=== PATIENT | female | born 1945 | race Caucasian/White ===

== ENCOUNTER 2017-09-03 17:33 | Observation (INO) | payer MEDICARE, OTHER ==
[~2017-09-03] VITALS: Ht 167.6 cm; Wt 60.0 kg
[~2017-09-03 17:33] MED LIST: ALBU18HF2 INH; ASPI-1265 PO; CHLO473M2 PO; CLOP75TA35 PO; COL100C PO; COR3.125T PO; FURO-150 PO; LISI-222 PO; NIA500ERT PO; POTA20TA19 PO; SIMV20TA5 PO
[2017-09-03 18:06] LABS: BASOPHILS % (AUTO) 0.3 % (0-1); EOSINOPHILS # (AUTO) 0.1 X10'3 (0-0.9); EOSINOPHILS % (AUTO) 0.6 % (0-6); HEMATOCRIT 36.7 % (35.0-45.0); HEMOGLOBIN 12.2 g/dl (12.0-16.0); LYMPHOCYTES # (AUTO) 2.2 X10'3 (1.1-4.8); LYMPHOCYTES % (AUTO) 17.1 % (21-51); MEAN CORPUSCULAR HEMOGLOBIN 26.3 PG (27.0-31.0); MEAN CORPUSCULAR HGB CONC 33.3 % (33.0-36.5); MEAN CORPUSCULAR VOLUME 78.9 FL (78-98); MEAN PLATELET VOLUME 8.8 FL (7.4-10.4); MONOCYTES # (AUTO) 1.3 X10'3 (0-0.9); MONOCYTES % (AUTO) 9.9 % (2-12); NEUTROPHILS # (AUTO) 9.2 X10'3 (1.8-7.7); NEUTROPHILS % (AUTO) 72.1 % (42-75); PLATELET COUNT 215 X10'3 (140-440); RED BLOOD COUNT 4.65 X10'6 (4.20-5.60); RED CELL DISTRIBUTION WIDTH 15.3 % (11.5-14.5); WHITE BLOOD COUNT 12.8 X10'3 (4.5-11.0)
[2017-09-03 18:17] LABS: PARTIAL THROMBOPLASTIN TIME 26 SECONDS (22-32); PROTHROMBIN TIME 10.8 SECONDS (9.0-12.0)
[2017-09-03 18:21] LABS: ALANINE AMINOTRANSFERASE 20 U/L (12-78); ALBUMIN/GLOBULIN RATIO 0.6 (1.1-1.5); ALKALINE PHOSPHATASE 96 IU/L (46-116); ANION GAP 7 (8-16); ASPARTATE AMINO TRANSFERASE 34 U/L (10-37); BILIRUBIN,TOTAL 0.7 MG/DL (0.1-1.0); BLOOD UREA NITROGEN 20 MG/DL (7-18); BUN/CREATININE RATIO 18.3 (6.6-38.0); CALCIUM 8.9 MG/DL (8.5-10.1); CHLORIDE 102 MMOL/L (99-107); CREATININE 1.09 MG/DL (0.40-0.90); GLUCOSE 126 MG/DL (70-104); POTASSIUM 3.7 MMOL/L (3.5-5.1); SODIUM 139 MMOL/L (135-145); TOTAL CARBON DIOXIDE 29.7 MMOL/L (24-32); TOTAL PROTEIN 7.8 G/DL (6.4-8.2); eGFR 49 ML/MIN
[2017-09-03 18:28] LABS: MAGNESIUM 1.8 MG/DL (1.5-2.4)
[2017-09-03] MEDS ORDERED: NITR0.4T51 SL (19:56)
[2017-09-03] MEDS ORDERED: HYDR-569 PO (19:56)
[2017-09-03] MEDS ORDERED: LEVO750T21 PO (19:56)
[2017-09-03] MEDS ORDERED: furosemide 40mg/4ml inj IV ONE (20:00)
[2017-09-03] MEDS ORDERED: mag hydrox/Alum hydrox/simeth 30ml oral suspension PO PRN (22:10)
[2017-09-03] MEDS ORDERED: acetaminophen 325mg tablet PO PRN (22:10)
[2017-09-03] MEDS ORDERED: bisacodyl 10mg suppository rectal RC PRN (22:10)
[2017-09-03 22:50] VITALS: BP 141/63
[2017-09-03] MEDS: levoFLOXACIN-Levaquin 500mg/D5 100 ML IV SCH (23:17)
[2017-09-04 02:00] VITALS: BP 144/71
[2017-09-04] MEDS: ipratropium/albuterol 3ml nebule NEB SCH ×4 (03:53→20:17)
[2017-09-04 06:50] VITALS: BP 134/63
[2017-09-04 07:20] LABS: BASOPHILS % (AUTO) 0.2 % (0-1); EOSINOPHILS % (AUTO) 0.5 % (0-6); HEMOGLOBIN 11.8 g/dl (12.0-16.0); LYMPHOCYTES % (AUTO) 19.3 % (21-51); MEAN CORPUSCULAR HEMOGLOBIN 26.1 PG (27.0-31.0); MEAN CORPUSCULAR HGB CONC 33.6 % (33.0-36.5); MEAN CORPUSCULAR VOLUME 77.7 FL (78-98); MEAN PLATELET VOLUME 9.4 FL (7.4-10.4); MONOCYTES # (AUTO) 1.2 X10'3 (0-0.9); MONOCYTES % (AUTO) 11.5 % (2-12); NEUTROPHILS # (AUTO) 7.2 X10'3 (1.8-7.7); NEUTROPHILS % (AUTO) 68.5 % (42-75); PLATELET COUNT 191 X10'3 (140-440); RED CELL DISTRIBUTION WIDTH 15.7 % (11.5-14.5); WHITE BLOOD COUNT 10.4 X10'3 (4.5-11.0)
[2017-09-04] MEDS ORDERED: furosemide 20MG tablet PO SCH (08:00)
[2017-09-04 08:11] LABS: ALANINE AMINOTRANSFERASE 28 U/L (12-78); ALBUMIN 2.9 G/DL (3.4-5.0); ALBUMIN/GLOBULIN RATIO 0.6 (1.1-1.5); ALKALINE PHOSPHATASE 91 IU/L (46-116); ANION GAP 9 (8-16); ASPARTATE AMINO TRANSFERASE 29 U/L (10-37); BILIRUBIN,TOTAL 0.8 MG/DL (0.1-1.0); BLOOD UREA NITROGEN 16 MG/DL (7-18); BUN/CREATININE RATIO 18.2 (6.6-38.0); CALCIUM 8.9 MG/DL (8.5-10.1); CHLORIDE 103 MMOL/L (99-107); CREATININE 0.88 MG/DL (0.40-0.90); GLUCOSE 117 MG/DL (70-104); SODIUM 141 MMOL/L (135-145); TOTAL CARBON DIOXIDE 28.9 MMOL/L (24-32); TOTAL PROTEIN 7.6 G/DL (6.4-8.2); eGFR 63 ML/MIN
[2017-09-04 08:13] LABS: POTASSIUM 2.8 MMOL/L (3.5-5.1)
[2017-09-04] MEDS ORDERED: magnesium 4gm in 100ml NS 100 ML IV PRN (09:45)
[2017-09-04] MEDS ORDERED: potassium Cl 40MEQ/NS 500ml 500 ML IV PRN ×2 (09:45)
[2017-09-04] MEDS ORDERED: magnesium/D5W IVPB 100 ML IV PRN (09:45)
[2017-09-04] MEDS ORDERED: magnesium Cl slow-release 64mg tablet PO PRN (09:45)
[2017-09-04] MEDS ORDERED: potassium Cl 20 mEq SR tablet PO PRN ×2 (09:45)
[2017-09-04 10:00] VITALS: BP 133/53
[2017-09-04] MEDS: docusate sod 100mg capsule PO SCH ×2 (10:06→19:03)
[2017-09-04] MEDS: carvedilol 6.25mg tablet PO SCH ×2 (10:06→19:03)
[2017-09-04] MEDS: aspirin 81mg tab.chew PO SCH (10:06)
[2017-09-04] MEDS: lisinopril 5mg tablet PO SCH (10:06)
[2017-09-04] MEDS: furosemide 20 MG/2 ML vial IV SCH ×2 (10:07→19:02)
[2017-09-04] MEDS: levoFLOXACIN-Levaquin 500mg/D5 100 ML IV SCH (10:08)
[2017-09-04] MEDS: traMADol 50MG tablet PO PRN ×3 (10:13→19:58)
[2017-09-04 10:15] VITALS: BP 121/63
[2017-09-04] MEDS ORDERED: potassium Cl oral solution 20 MEQ/15 ML PO PRN (14:55)
[2017-09-04] MEDS: potassium Cl oral solution 20 MEQ/15 ML PO PRN ×2 (15:59→19:58)
[2017-09-04 18:00] VITALS: BP 144/66
[2017-09-04] MEDS ORDERED: magnesium hydroxide 30ml (MOM) UD suspension PO ONE (18:50)
[2017-09-04] MEDS ORDERED: HYDROcodone/acetaminophen 5mg/325mg tablet PO PRN (18:50)
[2017-09-04] MEDS ORDERED: magnesium hydroxide 30ml (MOM) UD suspension PO PRN (18:55)
[2017-09-04 21:39] VITALS: BP 131/50
[2017-09-05 03:03] VITALS: BP 118/58
[2017-09-05] MEDS: ipratropium/albuterol 3ml nebule NEB SCH ×4 (04:20→20:52)
[2017-09-05 06:10] LABS: BASOPHILS % (AUTO) 0.1 % (0-1); EOSINOPHILS # (AUTO) 0.1 X10'3 (0-0.9); EOSINOPHILS % (AUTO) 0.7 % (0-6); HEMATOCRIT 33.8 % (35.0-45.0); HEMOGLOBIN 11.2 g/dl (12.0-16.0); LYMPHOCYTES # (AUTO) 1.9 X10'3 (1.1-4.8); LYMPHOCYTES % (AUTO) 18.4 % (21-51); MEAN CORPUSCULAR HEMOGLOBIN 26.1 PG (27.0-31.0); MEAN CORPUSCULAR HGB CONC 33.1 % (33.0-36.5); MEAN CORPUSCULAR VOLUME 78.9 FL (78-98); MEAN PLATELET VOLUME 9.4 FL (7.4-10.4); MONOCYTES # (AUTO) 1.6 X10'3 (0-0.9); NEUTROPHILS # (AUTO) 6.6 X10'3 (1.8-7.7); NEUTROPHILS % (AUTO) 64.8 % (42-75); PLATELET COUNT 154 X10'3 (140-440); RED BLOOD COUNT 4.28 X10'6 (4.20-5.60); RED CELL DISTRIBUTION WIDTH 15.5 % (11.5-14.5); WHITE BLOOD COUNT 10.3 X10'3 (4.5-11.0)
[2017-09-05 06:44] LABS: ALANINE AMINOTRANSFERASE 18 U/L (12-78); ALBUMIN 2.5 G/DL (3.4-5.0); ALBUMIN/GLOBULIN RATIO 0.6 (1.1-1.5); ALKALINE PHOSPHATASE 77 IU/L (46-116); ANION GAP 8 (8-16); ASPARTATE AMINO TRANSFERASE 28 U/L (10-37); BILIRUBIN,TOTAL 0.8 MG/DL (0.1-1.0); BLOOD UREA NITROGEN 25 MG/DL (7-18); BUN/CREATININE RATIO 25.5 (6.6-38.0); CALCIUM 8.8 MG/DL (8.5-10.1); CHLORIDE 104 MMOL/L (99-107); CREATININE 0.98 MG/DL (0.40-0.90); GLUCOSE 98 MG/DL (70-104); MAGNESIUM 1.9 MG/DL (1.5-2.4); POTASSIUM 4.2 MMOL/L (3.5-5.1); SODIUM 140 MMOL/L (135-145); TOTAL CARBON DIOXIDE 28.5 MMOL/L (24-32); TOTAL PROTEIN 6.9 G/DL (6.4-8.2); eGFR 56 ML/MIN
[2017-09-05] MEDS: carvedilol 6.25mg tablet PO SCH ×2 (07:10→20:07)
[2017-09-05] MEDS: traMADol 50MG tablet PO PRN (07:10)
[2017-09-05] MEDS: aspirin 81mg tab.chew PO SCH (07:10)
[2017-09-05] MEDS: lisinopril 5mg tablet PO SCH (07:10)
[2017-09-05] MEDS: docusate sod 100mg capsule PO SCH ×2 (07:10→20:07)
[2017-09-05] MEDS: levoFLOXACIN-Levaquin 500mg/D5 100 ML IV SCH (07:11)
[2017-09-05] MEDS: furosemide 20 MG/2 ML vial IV SCH ×2 (07:11→20:07)
[2017-09-05 08:00] VITALS: BP 118/60
[2017-09-05] MEDS ORDERED: ipratropium/albuterol 3ml nebule NEB PRN (14:05)
[2017-09-05] MEDS: guaiFENesin ER 600mg tablet PO SCH ×2 (14:11→20:07)
[2017-09-05 16:39] VITALS: BP 135/61
[2017-09-05] MEDS: lactobacillus rhamnosus 10,000 MMU CELLS/CAPSULE PO SCH (20:07)
[2017-09-05 22:00] VITALS: BP 116/55
[2017-09-06] MEDS: ipratropium/albuterol 3ml nebule NEB SCH ×2 (02:57→08:17)
[2017-09-06 04:30] LABS: BASOPHILS % (AUTO) 0.2 % (0-1); EOSINOPHILS # (AUTO) 0.2 X10'3 (0-0.9); EOSINOPHILS % (AUTO) 1.7 % (0-6); HEMATOCRIT 31.5 % (35.0-45.0); HEMOGLOBIN 10.3 g/dl (12.0-16.0); LYMPHOCYTES # (AUTO) 1.8 X10'3 (1.1-4.8); LYMPHOCYTES % (AUTO) 17.8 % (21-51); MEAN CORPUSCULAR HEMOGLOBIN 25.9 PG (27.0-31.0); MEAN CORPUSCULAR HGB CONC 32.7 % (33.0-36.5); MEAN CORPUSCULAR VOLUME 79.2 FL (78-98); MEAN PLATELET VOLUME 9.7 FL (7.4-10.4); MONOCYTES # (AUTO) 1.2 X10'3 (0-0.9); MONOCYTES % (AUTO) 11.3 % (2-12); NEUTROPHILS # (AUTO) 7.1 X10'3 (1.8-7.7); PLATELET COUNT 140 X10'3 (140-440); RED BLOOD COUNT 3.97 X10'6 (4.20-5.60); RED CELL DISTRIBUTION WIDTH 15.3 % (11.5-14.5); WHITE BLOOD COUNT 10.4 X10'3 (4.5-11.0)
[2017-09-06 04:52] LABS: ALANINE AMINOTRANSFERASE 18 U/L (12-78); ALBUMIN 2.5 G/DL (3.4-5.0); ALBUMIN/GLOBULIN RATIO 0.6 (1.1-1.5); ALKALINE PHOSPHATASE 74 IU/L (46-116); ANION GAP 9 (8-16); ASPARTATE AMINO TRANSFERASE 29 U/L (10-37); BILIRUBIN,TOTAL 0.7 MG/DL (0.1-1.0); BLOOD UREA NITROGEN 28 MG/DL (7-18); BUN/CREATININE RATIO 30.4 (6.6-38.0); CALCIUM 8.7 MG/DL (8.5-10.1); CHLORIDE 99 MMOL/L (99-107); CREATININE 0.92 MG/DL (0.40-0.90); GLUCOSE 109 MG/DL (70-104); MAGNESIUM 2.2 MG/DL (1.5-2.4); POTASSIUM 4.1 MMOL/L (3.5-5.1); SODIUM 136 MMOL/L (135-145); TOTAL CARBON DIOXIDE 28.2 MMOL/L (24-32); TOTAL PROTEIN 6.9 G/DL (6.4-8.2); eGFR 60 ML/MIN
[2017-09-06 06:00] VITALS: BP 114/56
[2017-09-06] MEDS: aspirin 81mg tab.chew PO SCH (07:28)
[2017-09-06] MEDS: furosemide 20 MG/2 ML vial IV SCH (07:29)
[2017-09-06] MEDS: lisinopril 5mg tablet PO SCH (07:29)
[2017-09-06] MEDS: carvedilol 6.25mg tablet PO SCH (07:29)
[2017-09-06] MEDS: levoFLOXACIN-Levaquin 500mg/D5 100 ML IV SCH (07:29)
[2017-09-06] MEDS: docusate sod 100mg capsule PO SCH (07:29)
[2017-09-06] MEDS: guaiFENesin ER 600mg tablet PO SCH (07:29)
[2017-09-06] MEDS: lactobacillus rhamnosus 10,000 MMU CELLS/CAPSULE PO SCH (07:29)
[2017-09-06] MEDS ORDERED: IPRA3AMP9 NEB (09:57)
== END 2017-09-06 11:20 | disposition home or self-care (01) ==
LOC: ER 17:34 → ED HOLD 22:09 → ORTHO 4S 23:02
PROVIDERS: ADMIT Emergency Medicine; ATTEND Internal Medicine
DX: R07.89 Other chest pain (principal); D64.9 Anemia, unspecified; E44.0 Moderate protein-calorie malnutrition; R05 Cough; I11.0 Hypertensive heart disease with heart failure; I50.23 Acute on chronic systolic (congestive) heart failure; E78.00 Pure hypercholesterolemia, unspecified; E78.5 Hyperlipidemia, unspecified; E87.6 Hypokalemia; N17.9 Acute kidney failure, unspecified; I25.10 Atherosclerotic heart disease of native coronary artery without angina pectoris; I25.2 Old myocardial infarction; I48.91 Unspecified atrial fibrillation; J96.01 Acute respiratory failure with hypoxia; Z86.73 Personal history of transient ischemic attack (TIA), and cerebral infarction without residual deficits; Z95.5 Presence of coronary angioplasty implant and graft; Z95.0 Presence of cardiac pacemaker; Z79.82 Long term (current) use of aspirin
CPT/HCPCS: 36415; 71045; 80053; 83735; 83880; 84484; 85025; 85610; 85730; 87070; 93005; 93306; 94640; 94760; 96365; 96366; 96375; 96376; 97110; 97162; 99285; G0378; J1940; J1956

== ENCOUNTER 2018-01-06 09:28 | Inpatient (IN) | payer MEDICARE, OTHER ==
[~2018-01-06] VITALS: Ht 167.6 cm; Wt 59.1 kg
[~2018-01-06 09:28] MED LIST changes: -ALBU18HF2 INH; -CHLO473M2 PO; -CLOP75TA35 PO; +HYDR-4383 PO; +IPRA3AMP9 NEB; +LEVO750T21 PO; -NIA500ERT PO; +NITR0.4T51 SL; -SIMV20TA5 PO
[2018-01-06] MEDS ORDERED: aspirin 81mg tab.chew PO ONE (09:40)
[2018-01-06] MEDS ORDERED: diltiazem 5mg/ml 5ml inj. IV ONE ×2 (09:40→10:55)
[2018-01-06 10:06] LABS: BASOPHILS % (AUTO) 0.3 % (0-1); EOSINOPHILS # (AUTO) 0.1 X10'3 (0-0.9); EOSINOPHILS % (AUTO) 1.6 % (0-6); HEMATOCRIT 33.7 % (35.0-45.0); HEMOGLOBIN 10.9 g/dl (12.0-16.0); LYMPHOCYTES # (AUTO) 1.4 X10'3 (1.1-4.8); LYMPHOCYTES % (AUTO) 20.6 % (21-51); MEAN CORPUSCULAR HEMOGLOBIN 24.4 PG (27.0-31.0); MEAN CORPUSCULAR HGB CONC 32.2 % (33.0-36.5); MEAN CORPUSCULAR VOLUME 75.9 FL (78-98); MEAN PLATELET VOLUME 8.7 FL (7.4-10.4); MONOCYTES # (AUTO) 0.6 X10'3 (0-0.9); MONOCYTES % (AUTO) 8.4 % (2-12); NEUTROPHILS # (AUTO) 4.8 X10'3 (1.8-7.7); NEUTROPHILS % (AUTO) 69.1 % (42-75); PLATELET COUNT 314 X10'3 (140-440); RED BLOOD COUNT 4.44 X10'6 (4.20-5.60); RED CELL DISTRIBUTION WIDTH 16.8 % (11.5-14.5); WHITE BLOOD COUNT 6.9 X10'3 (4.5-11.0)
[2018-01-06 10:17] LABS: INR 1.1 INR; PARTIAL THROMBOPLASTIN TIME 24 SECONDS (22-32); PROTHROMBIN TIME 11.6 SECONDS (9.0-12.0)
[2018-01-06 10:18] LABS: ALANINE AMINOTRANSFERASE 72 U/L (12-78); ALBUMIN 2.7 G/DL (3.4-5.0); ALBUMIN/GLOBULIN RATIO 0.7 (1.1-1.5); ALKALINE PHOSPHATASE 109 IU/L (46-116); ANION GAP 8 (8-16); ASPARTATE AMINO TRANSFERASE 47 U/L (10-37); BILIRUBIN,TOTAL 0.6 MG/DL (0.1-1.0); BLOOD UREA NITROGEN 32 MG/DL (7-18); BUN/CREATININE RATIO 29.4 (6.6-38.0); CALCIUM 8.7 MG/DL (8.5-10.1); CHLORIDE 103 MMOL/L (99-107); CREATININE 1.09 MG/DL (0.40-0.90); GLUCOSE 164 MG/DL (70-104); POTASSIUM 3.9 MMOL/L (3.5-5.1); SODIUM 140 MMOL/L (135-145); TOTAL CARBON DIOXIDE 29.5 MMOL/L (24-32); TOTAL PROTEIN 6.8 G/DL (6.4-8.2); eGFR 49 ML/MIN
[2018-01-06 10:25] LABS: MAGNESIUM 1.9 MG/DL (1.5-2.4)
[2018-01-06] MEDS ORDERED: ATOR40TA PO (11:50)
[2018-01-06] MEDS ORDERED: magnesium 1gm/100ml D5W IVPB 100 ML IV PRN (12:15)
[2018-01-06] MEDS ORDERED: HYDROcodone/acetaminophen 5mg/325mg tablet PO PRN (12:15)
[2018-01-06] MEDS ORDERED: mag hydrox/Alum hydrox/simeth 30ml oral suspension PO PRN (12:15)
[2018-01-06] MEDS ORDERED: potassium Cl 20 mEq SR tablet PO PRN ×2 (12:15)
[2018-01-06] MEDS ORDERED: acetaminophen 325mg tablet PO PRN ×2 (12:15)
[2018-01-06] MEDS ORDERED: magnesium Cl slow-release 64mg tablet PO PRN (12:15)
[2018-01-06] MEDS ORDERED: magnesium hydroxide 30ml (MOM) UD suspension PO PRN (12:15)
[2018-01-06] MEDS ORDERED: magnesium 4gm in 100ml NS 100 ML IV PRN (12:15)
[2018-01-06] MEDS ORDERED: potassium Cl 40MEQ/NS 500ml 500 ML IV PRN ×2 (12:15)
[2018-01-06] MEDS ORDERED: nitroGLYCERIN 0.4mg SUBLingual tab SL PRN (12:15)
[2018-01-06] MEDS ORDERED: ondansetron/PF 4mg/2ml inj IV PRN (12:15)
[2018-01-06] MEDS: diltiazem-NS 100mg/100ml 100 ML IV SCH (12:45)
[2018-01-06 13:50] VITALS: BP 125/80
[2018-01-06] MEDS ORDERED: metoprolol tartrate 1mg/ml inj IV ONE (14:35)
[2018-01-06 15:00] VITALS: BP 116/90
[2018-01-06 17:00] VITALS: BP 111/61
[2018-01-06 19:00] VITALS: BP 116/73
[2018-01-06] MEDS ORDERED: carVEDilol 3.125mg tablet PO SCH (20:00)
[2018-01-06] MEDS: apixaban 5mg tablet PO SCH (20:47)
[2018-01-06] MEDS: furosemide 20MG tablet PO SCH (20:49)
[2018-01-06] MEDS: atorvastatin 20mg tablet PO SCH (20:49)
[2018-01-06] MEDS: docusate sod 100mg capsule PO SCH (20:50)
[2018-01-06 21:00] VITALS: BP 110/59
[2018-01-06 23:00] VITALS: BP 107/57
[2018-01-07] VITALS (14 sets, daily range): BP systolic 99–136; BP diastolic 56–103
[2018-01-07] MEDS: diltiazem-NS 100mg/100ml 100 ML IV SCH (05:25)
[2018-01-07] MEDS ORDERED: furosemide 20 MG/2 ML vial IV ONE (06:40)
[2018-01-07 07:29] LABS: BASOPHILS % (AUTO) 0.7 % (0-1); EOSINOPHILS # (AUTO) 0.2 X10'3 (0-0.9); EOSINOPHILS % (AUTO) 3.3 % (0-6); HEMATOCRIT 34.1 % (35.0-45.0); HEMOGLOBIN 11.1 g/dl (12.0-16.0); LYMPHOCYTES # (AUTO) 1.6 X10'3 (1.1-4.8); LYMPHOCYTES % (AUTO) 24.6 % (21-51); MEAN CORPUSCULAR HEMOGLOBIN 24.5 PG (27.0-31.0); MEAN CORPUSCULAR HGB CONC 32.5 % (33.0-36.5); MEAN CORPUSCULAR VOLUME 75.3 FL (78-98); MEAN PLATELET VOLUME 8.8 FL (7.4-10.4); MONOCYTES # (AUTO) 0.7 X10'3 (0-0.9); MONOCYTES % (AUTO) 10.5 % (2-12); NEUTROPHILS # (AUTO) 3.9 X10'3 (1.8-7.7); NEUTROPHILS % (AUTO) 60.9 % (42-75); PLATELET COUNT 287 X10'3 (140-440); RED BLOOD COUNT 4.53 X10'6 (4.20-5.60); RED CELL DISTRIBUTION WIDTH 17.5 % (11.5-14.5); WHITE BLOOD COUNT 6.5 X10'3 (4.5-11.0)
[2018-01-07 07:41] LABS: ALANINE AMINOTRANSFERASE 74 U/L (12-78); ALBUMIN 2.7 G/DL (3.4-5.0); ALBUMIN/GLOBULIN RATIO 0.7 (1.1-1.5); ALKALINE PHOSPHATASE 104 IU/L (46-116); ANION GAP 6 (8-16); ASPARTATE AMINO TRANSFERASE 46 U/L (10-37); BILIRUBIN,TOTAL 0.8 MG/DL (0.1-1.0); BLOOD UREA NITROGEN 23 MG/DL (7-18); BUN/CREATININE RATIO 27.7 (6.6-38.0); CALCIUM 8.7 MG/DL (8.5-10.1); CHLORIDE 106 MMOL/L (99-107); CREATININE 0.83 MG/DL (0.40-0.90); GLUCOSE 98 MG/DL (70-104); MAGNESIUM 1.8 MG/DL (1.5-2.4); POTASSIUM 3.4 MMOL/L (3.5-5.1); SODIUM 143 MMOL/L (135-145); TOTAL CARBON DIOXIDE 31.2 MMOL/L (24-32); TOTAL PROTEIN 6.8 G/DL (6.4-8.2); eGFR 67 ML/MIN
[2018-01-07] MEDS: apixaban 5mg tablet PO SCH ×2 (07:58→20:06)
[2018-01-07] MEDS: potassium Cl 20 mEq SR tablet PO SCH (07:59)
[2018-01-07] MEDS ORDERED: carVEDilol 12.5mg tablet PO SCH (08:00)
[2018-01-07] MEDS: furosemide 20MG tablet PO SCH (08:00)
[2018-01-07] MEDS ORDERED: aspirin 81mg tab.chew PO SCH (08:00)
[2018-01-07] MEDS: docusate sod 100mg capsule PO SCH ×2 (08:00→20:05)
[2018-01-07] MEDS ORDERED: lisinopril 5mg tablet PO SCH (08:00)
[2018-01-07] MEDS: K and/or MAG REPLACEMENT MC SCH (08:03)
[2018-01-07] MEDS: carVEDilol 3.125mg tablet PO SCH ×2 (10:59→20:06)
[2018-01-07] MEDS: atorvastatin 20mg tablet PO SCH (20:05)
[2018-01-07] MEDS: furosemide 20 MG/2 ML vial IV SCH (20:06)
[2018-01-07] MEDS ORDERED: diltiazem-NS 100mg/100ml 100 ML IV SCH ×2 (21:25→21:27)
[2018-01-08] VITALS (9 sets, daily range): BP systolic 90–128; BP diastolic 54–99
[2018-01-08 03:57] LABS: MAGNESIUM 1.7 MG/DL (1.5-2.4); POTASSIUM 3.7 MMOL/L (3.5-5.1)
[2018-01-08 04:27] LABS: ALANINE AMINOTRANSFERASE 60 U/L (12-78); ALBUMIN 2.4 G/DL (3.4-5.0); ALBUMIN/GLOBULIN RATIO 0.6 (1.1-1.5); ALKALINE PHOSPHATASE 97 IU/L (46-116); ANION GAP 7 (8-16); ASPARTATE AMINO TRANSFERASE 32 U/L (10-37); BILIRUBIN,TOTAL 0.7 MG/DL (0.1-1.0); BLOOD UREA NITROGEN 22 MG/DL (7-18); BUN/CREATININE RATIO 27.2 (6.6-38.0); CALCIUM 8.4 MG/DL (8.5-10.1); CHLORIDE 108 MMOL/L (99-107); CREATININE 0.81 MG/DL (0.40-0.90); GLUCOSE 103 MG/DL (70-104); PHOSPHORUS 3.1 MG/DL (2.3-4.5); SODIUM 144 MMOL/L (135-145); TOTAL CARBON DIOXIDE 29.1 MMOL/L (24-32); TOTAL PROTEIN 6.4 G/DL (6.4-8.2); eGFR 69 ML/MIN
[2018-01-08 04:56] LABS: BASOPHILS % (AUTO) 0.2 % (0-1); EOSINOPHILS # (AUTO) 0.1 X10'3 (0-0.9); EOSINOPHILS % (AUTO) 1.5 % (0-6); HEMOGLOBIN 10.3 g/dl (12.0-16.0); LYMPHOCYTES # (AUTO) 1.2 X10'3 (1.1-4.8); LYMPHOCYTES % (AUTO) 17.5 % (21-51); MEAN CORPUSCULAR HEMOGLOBIN 24.4 PG (27.0-31.0); MEAN CORPUSCULAR HGB CONC 32.1 % (33.0-36.5); MEAN PLATELET VOLUME 9.6 FL (7.4-10.4); MONOCYTES # (AUTO) 0.9 X10'3 (0-0.9); MONOCYTES % (AUTO) 12.1 % (2-12); NEUTROPHILS # (AUTO) 4.8 X10'3 (1.8-7.7); NEUTROPHILS % (AUTO) 68.7 % (42-75); PLATELET COUNT 271 X10'3 (140-440); RED BLOOD COUNT 4.21 X10'6 (4.20-5.60); RED CELL DISTRIBUTION WIDTH 17.1 % (11.5-14.5); WHITE BLOOD COUNT 7.1 X10'3 (4.5-11.0)
[2018-01-08] MEDS: K and/or MAG REPLACEMENT MC SCH (08:00)
[2018-01-08] MEDS: lisinopril 2.5mg tablet PO SCH (08:05)
[2018-01-08] MEDS: docusate sod 100mg capsule PO SCH ×2 (08:06→20:54)
[2018-01-08] MEDS: potassium Cl 20 mEq SR tablet PO SCH (08:06)
[2018-01-08] MEDS: apixaban 5mg tablet PO SCH ×2 (08:06→20:54)
[2018-01-08] MEDS: furosemide 20 MG/2 ML vial IV SCH ×2 (08:08→20:54)
[2018-01-08] MEDS ORDERED: digoxin 250mcg/ml 2ml ampule IV ONE ×3 (09:05→18:00)
[2018-01-08] MEDS: carVEDilol 3.125mg tablet PO SCH ×2 (10:05→20:53)
[2018-01-08] MEDS: atorvastatin 20mg tablet PO SCH (20:53)
[2018-01-09 03:00] VITALS: BP 131/73
[2018-01-09 06:00] VITALS: BP 126/63
[2018-01-09] MEDS: digoxin 250mcg (0.25mg) tablet PO SCH ×2 (07:03→08:53)
[2018-01-09 07:24] LABS: BASOPHILS % (AUTO) 0.5 % (0-1); EOSINOPHILS # (AUTO) 0.3 X10'3 (0-0.9); EOSINOPHILS % (AUTO) 5.3 % (0-6); HEMATOCRIT 33.9 % (35.0-45.0); HEMOGLOBIN 10.7 g/dl (12.0-16.0); LYMPHOCYTES # (AUTO) 1.5 X10'3 (1.1-4.8); LYMPHOCYTES % (AUTO) 24.2 % (21-51); MEAN CORPUSCULAR HGB CONC 31.7 % (33.0-36.5); MEAN CORPUSCULAR VOLUME 75.7 FL (78-98); MEAN PLATELET VOLUME 8.8 FL (7.4-10.4); MONOCYTES # (AUTO) 0.7 X10'3 (0-0.9); MONOCYTES % (AUTO) 11.2 % (2-12); NEUTROPHILS # (AUTO) 3.6 X10'3 (1.8-7.7); NEUTROPHILS % (AUTO) 58.8 % (42-75); PLATELET COUNT 263 X10'3 (140-440); RED BLOOD COUNT 4.48 X10'6 (4.20-5.60); RED CELL DISTRIBUTION WIDTH 17.8 % (11.5-14.5); WHITE BLOOD COUNT 6.2 X10'3 (4.5-11.0)
[2018-01-09 07:46] LABS: ALANINE AMINOTRANSFERASE 50 U/L (12-78); ALBUMIN 2.3 G/DL (3.4-5.0); ALBUMIN/GLOBULIN RATIO 0.6 (1.1-1.5); ALKALINE PHOSPHATASE 95 IU/L (46-116); ANION GAP 5 (8-16); ASPARTATE AMINO TRANSFERASE 29 U/L (10-37); BILIRUBIN,TOTAL 0.8 MG/DL (0.1-1.0); BLOOD UREA NITROGEN 19 MG/DL (7-18); BUN/CREATININE RATIO 26.4 (6.6-38.0); CALCIUM 8.4 MG/DL (8.5-10.1); CHLORIDE 106 MMOL/L (99-107); CREATININE 0.72 MG/DL (0.40-0.90); GLUCOSE 88 MG/DL (70-104); MAGNESIUM 1.7 MG/DL (1.5-2.4); POTASSIUM 3.7 MMOL/L (3.5-5.1); SODIUM 143 MMOL/L (135-145); TOTAL PROTEIN 6.3 G/DL (6.4-8.2); eGFR 79 ML/MIN
[2018-01-09] MEDS: K and/or MAG REPLACEMENT MC SCH (08:00)
[2018-01-09] MEDS: furosemide 20 MG/2 ML vial IV SCH (08:01)
[2018-01-09] MEDS: carVEDilol 3.125mg tablet PO SCH (08:02)
[2018-01-09] MEDS: docusate sod 100mg capsule PO SCH (08:02)
[2018-01-09] MEDS: apixaban 5mg tablet PO SCH (08:04)
[2018-01-09] MEDS: potassium Cl 20 mEq SR tablet PO SCH (08:04)
[2018-01-09] MEDS: lisinopril 2.5mg tablet PO SCH (08:05)
[2018-01-09] MEDS ORDERED: DIGO-27 PO (09:09)
[2018-01-09] MEDS ORDERED: APIX5TAB3 PO (09:09)
== END 2018-01-09 11:55 | disposition home or self-care (01) | DRG 682 ==
LOC: ER 09:28 → ED HOLD 12:12 → PCU 3S 14:03
PROVIDERS: ADMIT Internal Medicine; ATTEND Internal Medicine
DX: N17.9 Acute kidney failure, unspecified (principal); I50.23 Acute on chronic systolic (congestive) heart failure; J96.01 Acute respiratory failure with hypoxia; I42.9 Cardiomyopathy, unspecified; I48.0 Paroxysmal atrial fibrillation; E78.00 Pure hypercholesterolemia, unspecified; E78.5 Hyperlipidemia, unspecified; I11.0 Hypertensive heart disease with heart failure; D64.9 Anemia, unspecified; I25.10 Atherosclerotic heart disease of native coronary artery without angina pectoris; I25.2 Old myocardial infarction; Z95.5 Presence of coronary angioplasty implant and graft; Z95.810 Presence of automatic (implantable) cardiac defibrillator; Z98.51 Tubal ligation status; Z79.899 Other long term (current) drug therapy; Z79.01 Long term (current) use of anticoagulants; Z79.82 Long term (current) use of aspirin; Z86.73 Personal history of transient ischemic attack (TIA), and cerebral infarction without residual deficits; Z23 Encounter for immunization
CPT/HCPCS: 36415; 71045; 80053; 80162; 83735; 83880; 84100; 84443; 84484; 85025; 85610; 85730; 87070; 93005; 93306; 96374; 96376; 97116; 97161; 99291; J1160; J1940; J3480; J3490

== ENCOUNTER 2018-05-29 09:34 | Observation (INO) | payer MEDICARE, OTHER ==
[~2018-05-29] VITALS: Ht 167.6 cm; Wt 56.8 kg
[~2018-05-29 09:34] MED LIST changes: +APIX5TAB3 PO; +ATOR40TA PO; +DIGO-27 PO; -HYDR-4383 PO; -IPRA3AMP9 NEB; -LEVO750T21 PO
[2018-05-29 10:20] LABS: BASOPHILS # (AUTO) 0.1 X10'3 (0-0.2); BASOPHILS % (AUTO) 0.8 % (0-1); EOSINOPHILS % (AUTO) 0.5 % (0-6); HEMATOCRIT 37.6 % (35.0-45.0); HEMOGLOBIN 12.1 g/dl (12.0-16.0); LYMPHOCYTES # (AUTO) 1.3 X10'3 (1.1-4.8); LYMPHOCYTES % (AUTO) 16.8 % (21-51); MEAN CORPUSCULAR HEMOGLOBIN 22.3 PG (27.0-31.0); MEAN CORPUSCULAR HGB CONC 32.3 g/dL (33.0-36.5); MEAN PLATELET VOLUME 8.1 FL (7.4-10.4); MONOCYTES # (AUTO) 0.6 X10'3 (0-0.9); MONOCYTES % (AUTO) 7.6 % (2-12); NEUTROPHILS # (AUTO) 5.8 X10'3 (1.8-7.7); NEUTROPHILS % (AUTO) 74.3 % (42-75); PLATELET COUNT 388 X10'3 (140-440); RED BLOOD COUNT 5.46 X10'6 (4.20-5.60); RED CELL DISTRIBUTION WIDTH 19.3 % (11.5-14.5); WHITE BLOOD COUNT 7.8 X10'3 (4.5-11.0)
[2018-05-29 10:34] LABS: INR 1.2 INR; PARTIAL THROMBOPLASTIN TIME 27 SECONDS (22-32); PROTHROMBIN TIME 11.9 SECONDS (9.0-12.0)
[2018-05-29 10:36] LABS: ALANINE AMINOTRANSFERASE 41 U/L (12-78); ALBUMIN 2.7 G/DL (3.4-5.0); ALBUMIN/GLOBULIN RATIO 0.6 (1.1-1.5); ALKALINE PHOSPHATASE 125 IU/L (46-116); ANION GAP 9 (8-16); ASPARTATE AMINO TRANSFERASE 32 U/L (10-37); BILIRUBIN,TOTAL 1.3 MG/DL (0.1-1.0); BLOOD UREA NITROGEN 18 MG/DL (7-18); BUN/CREATININE RATIO 19.8 (6.6-38.0); CALCIUM 9.4 MG/DL (8.5-10.1); CHLORIDE 105 MMOL/L (99-107); CREATININE 0.91 MG/DL (0.40-0.90); GLUCOSE 95 MG/DL (70-104); POTASSIUM 4.4 MMOL/L (3.5-5.1); SODIUM 142 MMOL/L (135-145); TOTAL CARBON DIOXIDE 28.4 MMOL/L (24-32); TOTAL PROTEIN 7.2 G/DL (6.4-8.2); eGFR 61 ML/MIN
[2018-05-29 11:03] LABS: PLATELET ESTIMATE NORMAL
[2018-05-29 11:04] LABS: ACANTHOCYTES 2+; ANISOCYTOSIS 2+; ELLIPTOCYTES 1+; HYPOCHROMASIA 2+; MICROCYTOSIS 2+; POLYCHROMASIA 1+; SCHISTOCYTES FEW
[2018-05-29] MEDS ORDERED: normal saline 1000ML IV soln IVB ONE (11:55)
[2018-05-29] MEDS ORDERED: ondansetron/PF 4mg/2ml inj IV ONE (11:55)
[2018-05-29] MEDS ORDERED: nitroGLYCERIN 0.2mg/hour patch TD ONE (12:35)
[2018-05-29] MEDS ORDERED: aspirin 81mg tab.chew PO ONE (12:35)
[2018-05-29] MEDS ORDERED: potassium Cl 20 mEq SR tablet PO PRN ×2 (13:25)
[2018-05-29] MEDS ORDERED: potassium Cl 40MEQ/NS 500ml 500 ML IV PRN ×2 (13:25)
[2018-05-29] MEDS ORDERED: magnesium 2GM in 50ml NS 50 ML IV PRN (13:25)
[2018-05-29] MEDS ORDERED: ondansetron/PF 4mg/2ml inj IV PRN (13:25)
[2018-05-29] MEDS ORDERED: magnesium hydroxide 30ml (MOM) UD suspension PO PRN (13:25)
[2018-05-29] MEDS ORDERED: magnesium Cl slow-release 64mg tablet PO PRN (13:25)
[2018-05-29] MEDS ORDERED: mag hydrox/Alum hydrox/simeth 30ml oral suspension PO PRN (13:25)
[2018-05-29] MEDS ORDERED: magnesium 4gm in 100ml NS 100 ML IV PRN (13:25)
[2018-05-29] MEDS ORDERED: acetaminophen 325mg tablet PO PRN ×2 (13:25)
[2018-05-29] MEDS ORDERED: CARV12.5 PO (13:59)
[2018-05-29] MEDS ORDERED: nitroGLYCERIN 0.4mg SUBLingual tab SL PRN (15:30)
--- NOTE | 2018-05-29 16:23 | NUR ---
Luci DOMINGUEZ from ER called to give report. Patient on her way to room [facility] surgical.
[2018-05-29 16:50] VITALS: BP 148/65
--- NOTE | 2018-05-29 16:50 | NUR ---
Patient arrived to surgical [facility]
--- NOTE | 2018-05-29 18:26 | NUR ---
Problems reprioritized. Patient report given, Jessica DOMINGUEZ questions answered & plan of care reviewed with . Patient in bed with family at bedside. Bed low, locked call light in reach
--- NOTE | 2018-05-29 18:30 | NUR ---
Patient in room VEL 354. I have received report from CHARITY and had the opportunity to ask questions and assume patient care.
[2018-05-29 18:49] LABS: MAGNESIUM 1.6 MG/DL (1.5-2.4)
[2018-05-29 19:00] VITALS: BP 140/62
[2018-05-29] MEDS: apixaban 5mg tablet PO SCH (20:18)
[2018-05-29] MEDS: carVEDilol 12.5mg tablet PO SCH (20:19)
[2018-05-29] MEDS: furosemide 10 MG/1 ML 10ml inj IV SCH (20:19)
[2018-05-29 23:00] VITALS: BP 131/63
[2018-05-30 06:14] LABS: BASOPHILS # (AUTO) 0.1 X10'3 (0-0.2); EOSINOPHILS # (AUTO) 0.2 X10'3 (0-0.9); EOSINOPHILS % (AUTO) 2.2 % (0-6); HEMATOCRIT 33.7 % (35.0-45.0); HEMOGLOBIN 10.9 g/dl (12.0-16.0); LYMPHOCYTES # (AUTO) 1.9 X10'3 (1.1-4.8); LYMPHOCYTES % (AUTO) 26.1 % (21-51); MEAN CORPUSCULAR HEMOGLOBIN 22.3 PG (27.0-31.0); MEAN CORPUSCULAR HGB CONC 32.4 g/dL (33.0-36.5); MEAN CORPUSCULAR VOLUME 68.9 FL (78-98); MEAN PLATELET VOLUME 8.6 FL (7.4-10.4); MONOCYTES # (AUTO) 0.7 X10'3 (0-0.9); NEUTROPHILS # (AUTO) 4.4 X10'3 (1.8-7.7); NEUTROPHILS % (AUTO) 60.7 % (42-75); PLATELET COUNT 315 X10'3 (140-440); RED BLOOD COUNT 4.88 X10'6 (4.20-5.60); RED CELL DISTRIBUTION WIDTH 19.6 % (11.5-14.5); WHITE BLOOD COUNT 7.2 X10'3 (4.5-11.0)
--- NOTE | 2018-05-30 06:15 | NUR ---
Patient in room VEL 354. I have received report from ANGELICA Lopez and had the opportunity to ask questions and assume patient care.
[2018-05-30 06:17] LABS: ALBUMIN 2.2 G/DL (3.4-5.0); ANION GAP 6 (8-16); BLOOD UREA NITROGEN 19 MG/DL (7-18); BUN/CREATININE RATIO 25.3 (6.6-38.0); CALCIUM 8.5 MG/DL (8.5-10.1); CHLORIDE 106 MMOL/L (99-107); CREATININE 0.75 MG/DL (0.40-0.90); GLUCOSE 84 MG/DL (70-104); MAGNESIUM 1.6 MG/DL (1.5-2.4); POTASSIUM 3.1 MMOL/L (3.5-5.1); SODIUM 142 MMOL/L (135-145); eGFR 76 ML/MIN
--- NOTE | 2018-05-30 06:26 | NUR ---
Problems reprioritized. Patient report given, questions answered & plan of care reviewed with THERESA.
[2018-05-30 06:30] VITALS: BP 135/75
[2018-05-30 07:02] LABS: ANISOCYTOSIS 2+; HYPOCHROMASIA 2+; MICROCYTOSIS 2+; PLATELET ESTIMATE NORMAL; SCHISTOCYTES 1+
[2018-05-30 07:03] LABS: ACANTHOCYTES 1+; ELLIPTOCYTES 1+
[2018-05-30] MEDS: carVEDilol 12.5mg tablet PO SCH (07:46)
[2018-05-30] MEDS: apixaban 5mg tablet PO SCH (07:46)
[2018-05-30] MEDS: furosemide 10 MG/1 ML 10ml inj IV SCH (07:47)
[2018-05-30] MEDS ORDERED: K and/or MAG REPLACEMENT MC SCH (08:00)
[2018-05-30] MEDS ORDERED: lisinopril 5mg tablet PO SCH (08:00)
[2018-05-30] MEDS ORDERED: potassium Cl 20 mEq SR tablet PO SCH (08:00)
[2018-05-30] MEDS ORDERED: atorvastatin 20mg tablet PO SCH (08:00)
[2018-05-30] MEDS ORDERED: aspirin 81mg tab.chew PO SCH (08:00)
[2018-05-30 11:00] VITALS: BP 120/54
--- NOTE | 2018-05-30 15:50 | NUR ---
DC inst provided to pt. IV DC'd, tip intact. All belongings sent w/pt. WC to front lobby.
== END 2018-05-30 15:51 | disposition home or self-care (01) ==
LOC: ER 09:35 → ED HOLD 14:32 → UNDOADMOB 14:32 → INTOOBSV 14:32 → ED HOLD 15:29 → EDBEDREQ 16:18 → SUR 3N 16:46 → ED HOLD 16:46 → SUR 3N 16:46
PROVIDERS: ADMIT Hospitalist; ATTEND Hospitalist
DX: R07.89 Other chest pain (principal); R06.02 Shortness of breath; R11.2 Nausea with vomiting, unspecified; I50.23 Acute on chronic systolic (congestive) heart failure; I25.10 Atherosclerotic heart disease of native coronary artery without angina pectoris; E78.00 Pure hypercholesterolemia, unspecified; I11.0 Hypertensive heart disease with heart failure; I25.2 Old myocardial infarction; Z86.73 Personal history of transient ischemic attack (TIA), and cerebral infarction without residual deficits; Z87.891 Personal history of nicotine dependence; T46.0X5A Adverse effect of cardiac-stimulant glycosides and drugs of similar action, initial encounter; J44.9 Chronic obstructive pulmonary disease, unspecified
CPT/HCPCS: 36415; 71045; 80048; 80053; 80162; 83735; 83880; 84484; 85025; 85610; 85730; 87070; 93005; 96374; 96375; 96376; 99284; G0378; J1940; J2405; 96361; 99285

== ENCOUNTER 2018-06-01 10:13 | Inpatient (IN) | payer MEDICARE, OTHER ==
[~2018-06-01] VITALS: Ht 167.6 cm; Wt 56.8 kg
[~2018-06-01 10:13] MED LIST changes: +CARV12.5 PO
[2018-06-01 10:38] LABS: BASOPHILS # (AUTO) 0.1 X10'3 (0-0.2); BASOPHILS % (AUTO) 0.4 % (0-1); EOSINOPHILS # (AUTO) 0.1 X10'3 (0-0.9); EOSINOPHILS % (AUTO) 0.4 % (0-6); HEMATOCRIT 36.4 % (35.0-45.0); HEMOGLOBIN 11.3 g/dl (12.0-16.0); LYMPHOCYTES % (AUTO) 6.3 % (21-51); MEAN CORPUSCULAR HEMOGLOBIN 21.8 PG (27.0-31.0); MEAN CORPUSCULAR HGB CONC 31.1 g/dL (33.0-36.5); MEAN PLATELET VOLUME 8.1 FL (7.4-10.4); MONOCYTES # (AUTO) 1.2 X10'3 (0-0.9); MONOCYTES % (AUTO) 7.6 % (2-12); NEUTROPHILS # (AUTO) 13.6 X10'3 (1.8-7.7); NEUTROPHILS % (AUTO) 85.3 % (42-75); PLATELET COUNT 387 X10'3 (140-440); RED CELL DISTRIBUTION WIDTH 19.5 % (11.5-14.5)
[2018-06-01 10:50] LABS: ALANINE AMINOTRANSFERASE 40 U/L (12-78); ALBUMIN 2.9 G/DL (3.4-5.0); ALBUMIN/GLOBULIN RATIO 0.6 (1.1-1.5); ALKALINE PHOSPHATASE 113 IU/L (46-116); ANION GAP 7 (8-16); ASPARTATE AMINO TRANSFERASE 36 U/L (10-37); BILIRUBIN,TOTAL 0.7 MG/DL (0.1-1.0); BLOOD UREA NITROGEN 20 MG/DL (7-18); BUN/CREATININE RATIO 24.1 (6.6-38.0); CHLORIDE 104 MMOL/L (99-107); CREATININE 0.83 MG/DL (0.40-0.90); GLUCOSE 130 MG/DL (70-104); POTASSIUM 3.4 MMOL/L (3.5-5.1); SODIUM 142 MMOL/L (135-145); TOTAL CARBON DIOXIDE 30.8 MMOL/L (24-32); TOTAL PROTEIN 7.5 G/DL (6.4-8.2); eGFR 67 ML/MIN
[2018-06-01 10:52] LABS: INR 1.1 INR; PARTIAL THROMBOPLASTIN TIME 25 SECONDS (22-32)
[2018-06-01 11:12] LABS: ANISOCYTOSIS 2+; MICROCYTOSIS 2+; PLATELET ESTIMATE NORMAL; TOTAL CELLS COUNTED 100
[2018-06-01 11:13] LABS: ELLIPTOCYTES 1+
[2018-06-01 11:14] LABS: SCHISTOCYTES FEW
[2018-06-01] MEDS ORDERED: iohexol 350MG/ML 100ml bottle IV ONE (11:22)
[2018-06-01] MEDS ORDERED: POTA20TA19 PO (13:01)
[2018-06-01] MEDS ORDERED: APIX5TAB3 PO (13:01)
[2018-06-01] MEDS ORDERED: FURO20TA4 PO (13:04)
[2018-06-01] MEDS ORDERED: levoFLOXACIN-Levaquin 750MG/D5 150 ML IV STA (13:06)
[2018-06-01] MEDS ORDERED: potassium Cl 40MEQ/NS 500ml 500 ML IV PRN ×2 (14:35)
[2018-06-01] MEDS ORDERED: magnesium 2GM in 50ml NS 50 ML IV PRN (14:35)
[2018-06-01] MEDS ORDERED: mag hydrox/Alum hydrox/simeth 30ml oral suspension PO PRN (14:35)
[2018-06-01] MEDS ORDERED: magnesium 4gm in 100ml NS 100 ML IV PRN (14:35)
[2018-06-01] MEDS ORDERED: ondansetron/PF 4mg/2ml inj IV PRN (14:35)
[2018-06-01] MEDS ORDERED: potassium Cl 20 mEq SR tablet PO PRN (14:35)
[2018-06-01] MEDS ORDERED: magnesium hydroxide 30ml (MOM) UD suspension PO PRN (14:35)
[2018-06-01] MEDS ORDERED: magnesium Cl slow-release 64mg tablet PO PRN (14:35)
[2018-06-01] MEDS ORDERED: acetaminophen 325mg tablet PO PRN (14:35)
[2018-06-01] MEDS: CefTRIAXone/D5W-Rocephin 1gm 50 ML IV SCH (14:40)
[2018-06-01] MEDS ORDERED: nitroGLYCERIN 0.4mg SUBLingual tab SL PRN (14:40)
[2018-06-01] MEDS: azithromycin/NS 500mg/250ml 250 ML IV SCH (14:40)
[2018-06-01] MEDS: potassium Cl 20 mEq SR tablet PO PRN (20:44)
[2018-06-01] MEDS: carVEDilol 12.5mg tablet PO SCH (20:44)
[2018-06-01] MEDS: apixaban 5mg tablet PO SCH (20:44)
--- NOTE | 2018-06-01 22:34 | NUR ---
PT PLACED ON HOSPITAL BED. PT WITH NO NEEDS AT THIS TIME. AWAITING IPA AND WILL LIKELY BE ER ADMIT HOLD THROUGH THE NIGHT.
--- NOTE | 2018-06-01 23:12 | NUR ---
PT'S BLANKETS AND CARDIAC LEADS ADJUSTED. SHE DENIES ANY PAIN. WATER PITCHER FILLED. CURRENT VSS. AWAITINIG IPA
[2018-06-02 02:58] VITALS: BP 118/80
[2018-06-02 06:00] VITALS: BP 132/68
[2018-06-02 06:03] LABS: BASOPHILS % (AUTO) 0.2 % (0-1); EOSINOPHILS # (AUTO) 0.1 X10'3 (0-0.9); EOSINOPHILS % (AUTO) 0.5 % (0-6); HEMATOCRIT 28.9 % (35.0-45.0); HEMOGLOBIN 9.4 g/dl (12.0-16.0); LYMPHOCYTES # (AUTO) 1.9 X10'3 (1.1-4.8); LYMPHOCYTES % (AUTO) 13.9 % (21-51); MEAN CORPUSCULAR HEMOGLOBIN 22.2 PG (27.0-31.0); MEAN CORPUSCULAR HGB CONC 32.6 g/dL (33.0-36.5); MEAN CORPUSCULAR VOLUME 68.3 FL (78-98); MEAN PLATELET VOLUME 8.6 FL (7.4-10.4); MONOCYTES # (AUTO) 1.3 X10'3 (0-0.9); MONOCYTES % (AUTO) 9.3 % (2-12); NEUTROPHILS # (AUTO) 10.4 X10'3 (1.8-7.7); NEUTROPHILS % (AUTO) 76.1 % (42-75); PLATELET COUNT 268 X10'3 (140-440); RED BLOOD COUNT 4.24 X10'6 (4.20-5.60); RED CELL DISTRIBUTION WIDTH 19.1 % (11.5-14.5); WHITE BLOOD COUNT 13.6 X10'3 (4.5-11.0)
--- NOTE | 2018-06-02 06:10 | NUR ---
Patient in room ORTHO 4015. I have received report from Leia DOMINGUEZ and had the opportunity to ask questions and assume patient care.
[2018-06-02 06:14] LABS: ALANINE AMINOTRANSFERASE 28 U/L (12-78); ALBUMIN 2.1 G/DL (3.4-5.0); ALBUMIN/GLOBULIN RATIO 0.6 (1.1-1.5); ALKALINE PHOSPHATASE 81 IU/L (46-116); ANION GAP 4 (8-16); ASPARTATE AMINO TRANSFERASE 24 U/L (10-37); BILIRUBIN,TOTAL 0.7 MG/DL (0.1-1.0); BLOOD UREA NITROGEN 22 MG/DL (7-18); BUN/CREATININE RATIO 33.3 (6.6-38.0); CALCIUM 8.4 MG/DL (8.5-10.1); CHLORIDE 106 MMOL/L (99-107); CREATININE 0.66 MG/DL (0.40-0.90); GLUCOSE 95 MG/DL (70-104); MAGNESIUM 1.7 MG/DL (1.5-2.4); POTASSIUM 3.4 MMOL/L (3.5-5.1); SODIUM 139 MMOL/L (135-145); TOTAL CARBON DIOXIDE 29.5 MMOL/L (24-32); TOTAL PROTEIN 5.9 G/DL (6.4-8.2); eGFR 88 ML/MIN
[2018-06-02 07:50] LABS: ANISOCYTOSIS 2+; HYPOCHROMASIA 2+; MICROCYTOSIS 2+; PLATELET ESTIMATE NORMAL
[2018-06-02 07:51] LABS: ELLIPTOCYTES 1+
[2018-06-02 07:52] LABS: BURR CELLS FEW; SCHISTOCYTES FEW
[2018-06-02] MEDS: K and/or MAG REPLACEMENT MC SCH (08:00)
[2018-06-02] MEDS ORDERED: non-formulary drug (Atorvastatin Calcium* (Lipitor*) 1 TAB) PO SCH (08:00)
[2018-06-02] MEDS: CefTRIAXone/D5W-Rocephin 1gm 50 ML IV SCH (08:12)
[2018-06-02] MEDS: aspirin 81mg tab.chew PO SCH (08:13)
[2018-06-02] MEDS: carVEDilol 12.5mg tablet PO SCH ×2 (08:16→21:45)
[2018-06-02] MEDS: apixaban 5mg tablet PO SCH ×2 (08:18→21:45)
[2018-06-02] MEDS: atorvastatin 20mg tablet PO SCH (08:18)
[2018-06-02] MEDS: lisinopril 5mg tablet PO SCH (08:18)
[2018-06-02] MEDS: azithromycin/NS 500mg/250ml 250 ML IV SCH (09:58)
[2018-06-02] MEDS: potassium Cl 20 mEq SR tablet PO PRN ×3 (09:58→17:41)
[2018-06-02 10:00] VITALS: BP 107/59
--- NOTE | 2018-06-02 13:08 | NUR ---
PAGER ID: [phone] MESSAGE: Marium huizar, #[phone], Ms. [place] in [id number] & family are wanting to know why the digoxin was dc'd on 05/29 and when/if it would be restarted, thank you
[2018-06-02 18:00] VITALS: BP 105/69
--- NOTE | 2018-06-02 18:04 | NUR ---
Problems reprioritized. Patient report given, questions answered & plan of care reviewed with Toshia Drummond RN.
--- NOTE | 2018-06-02 18:23 | NUR ---
PATIENT REPORT RECEIVED FROM STEPHANIE DOMINGUEZ.
[2018-06-02 22:00] VITALS: BP 123/69
[2018-06-03 06:00] VITALS: BP 139/77
--- NOTE | 2018-06-03 06:00 | NUR ---
Patient in room ORTHO 4015. I have received report from Toshia Issa RN and had the opportunity to ask questions and assume patient care.
[2018-06-03] MEDS: CefTRIAXone/D5W-Rocephin 1gm 50 ML IV SCH (07:13)
[2018-06-03] MEDS: apixaban 5mg tablet PO SCH ×2 (07:24→19:35)
[2018-06-03] MEDS: lisinopril 5mg tablet PO SCH (07:24)
[2018-06-03] MEDS: carVEDilol 12.5mg tablet PO SCH ×2 (07:24→19:34)
[2018-06-03] MEDS: atorvastatin 20mg tablet PO SCH (07:24)
[2018-06-03] MEDS: aspirin 81mg tab.chew PO SCH (07:24)
[2018-06-03 07:54] LABS: BASOPHILS % (AUTO) 0.3 % (0-1); EOSINOPHILS # (AUTO) 0.1 X10'3 (0-0.9); EOSINOPHILS % (AUTO) 1.2 % (0-6); HEMATOCRIT 32.1 % (35.0-45.0); HEMOGLOBIN 10.2 g/dl (12.0-16.0); LYMPHOCYTES # (AUTO) 1.4 X10'3 (1.1-4.8); LYMPHOCYTES % (AUTO) 16.6 % (21-51); MEAN CORPUSCULAR HEMOGLOBIN 21.9 PG (27.0-31.0); MEAN CORPUSCULAR HGB CONC 31.6 g/dL (33.0-36.5); MEAN CORPUSCULAR VOLUME 69.3 FL (78-98); MEAN PLATELET VOLUME 8.7 FL (7.4-10.4); MONOCYTES % (AUTO) 11.8 % (2-12); NEUTROPHILS # (AUTO) 6.1 X10'3 (1.8-7.7); NEUTROPHILS % (AUTO) 70.1 % (42-75); PLATELET COUNT 288 X10'3 (140-440); RED BLOOD COUNT 4.63 X10'6 (4.20-5.60); RED CELL DISTRIBUTION WIDTH 19.3 % (11.5-14.5); WHITE BLOOD COUNT 8.7 X10'3 (4.5-11.0)
[2018-06-03] MEDS: K and/or MAG REPLACEMENT MC SCH (08:00)
[2018-06-03 08:05] LABS: ALANINE AMINOTRANSFERASE 25 U/L (12-78); ALBUMIN 2.3 G/DL (3.4-5.0); ALBUMIN/GLOBULIN RATIO 0.5 (1.1-1.5); ALKALINE PHOSPHATASE 85 IU/L (46-116); ANION GAP 5 (8-16); ASPARTATE AMINO TRANSFERASE 23 U/L (10-37); BILIRUBIN,TOTAL 0.6 MG/DL (0.1-1.0); BLOOD UREA NITROGEN 19 MG/DL (7-18); BUN/CREATININE RATIO 25.3 (6.6-38.0); CALCIUM 8.8 MG/DL (8.5-10.1); CHLORIDE 105 MMOL/L (99-107); CREATININE 0.75 MG/DL (0.40-0.90); GLUCOSE 103 MG/DL (70-104); MAGNESIUM 1.9 MG/DL (1.5-2.4); SODIUM 140 MMOL/L (135-145); TOTAL CARBON DIOXIDE 30.1 MMOL/L (24-32); TOTAL PROTEIN 6.6 G/DL (6.4-8.2); eGFR 76 ML/MIN
[2018-06-03] MEDS: azithromycin/NS 500mg/250ml 250 ML IV SCH (08:20)
[2018-06-03 08:39] LABS: HYPOCHROMASIA 1+; PLATELET ESTIMATE NORMAL; POLYCHROMASIA 1+
[2018-06-03 08:40] LABS: ACANTHOCYTES 1+; ANISOCYTOSIS 2+; ELLIPTOCYTES 1+; MICROCYTOSIS 2+; SCHISTOCYTES FEW
[2018-06-03 10:58] VITALS: BP 103/43
[2018-06-03 18:00] VITALS: BP 128/72
--- NOTE | 2018-06-03 18:21 | NUR ---
Problems reprioritized. Patient report given, questions answered & plan of care reviewed with ANGELICA Munguia.
--- NOTE | 2018-06-03 18:26 | NUR ---
Patient in room ORTHO 4015. I have received report from Marium DOMINGUEZ and had the opportunity to ask questions and assume patient care.
[2018-06-03] MEDS: lactobacillus rhamnosus 10,000 MMU CELLS/CAPSULE PO SCH (19:35)
[2018-06-03 22:00] VITALS: BP 124/64
--- NOTE | 2018-06-03 22:26 | NUR ---
Patient says she coughed up some sputum with some blood. Unable to find specimen. Told patient to save specimen so that i can assess.
[2018-06-04 06:00] VITALS: BP 125/67
--- NOTE | 2018-06-04 06:10 | NUR ---
Patient in room ORTHO 4015. I have received report from Nilda DOMINGUEZ and had the opportunity to ask questions and assume patient care.
--- NOTE | 2018-06-04 06:15 | NUR ---
Problems reprioritized. Patient report given, questions answered & plan of care reviewed with Marium DOMINGUEZ.
[2018-06-04 06:36] LABS: BASOPHILS % (AUTO) 0.5 % (0-1); EOSINOPHILS # (AUTO) 0.2 X10'3 (0-0.9); EOSINOPHILS % (AUTO) 1.9 % (0-6); HEMATOCRIT 28.9 % (35.0-45.0); HEMOGLOBIN 9.3 g/dl (12.0-16.0); LYMPHOCYTES # (AUTO) 1.6 X10'3 (1.1-4.8); LYMPHOCYTES % (AUTO) 19.8 % (21-51); MEAN CORPUSCULAR HEMOGLOBIN 22.4 PG (27.0-31.0); MEAN CORPUSCULAR HGB CONC 32.2 g/dL (33.0-36.5); MEAN CORPUSCULAR VOLUME 69.6 FL (78-98); MEAN PLATELET VOLUME 8.7 FL (7.4-10.4); MONOCYTES # (AUTO) 0.8 X10'3 (0-0.9); MONOCYTES % (AUTO) 9.4 % (2-12); NEUTROPHILS # (AUTO) 5.6 X10'3 (1.8-7.7); NEUTROPHILS % (AUTO) 68.4 % (42-75); PLATELET COUNT 267 X10'3 (140-440); RED BLOOD COUNT 4.15 X10'6 (4.20-5.60); RED CELL DISTRIBUTION WIDTH 19.2 % (11.5-14.5); WHITE BLOOD COUNT 8.1 X10'3 (4.5-11.0)
[2018-06-04 06:55] LABS: ALANINE AMINOTRANSFERASE 24 U/L (12-78); ALBUMIN 2.1 G/DL (3.4-5.0); ALBUMIN/GLOBULIN RATIO 0.5 (1.1-1.5); ALKALINE PHOSPHATASE 78 IU/L (46-116); ANION GAP 6 (8-16); ASPARTATE AMINO TRANSFERASE 21 U/L (10-37); BILIRUBIN,TOTAL 0.5 MG/DL (0.1-1.0); BLOOD UREA NITROGEN 21 MG/DL (7-18); BUN/CREATININE RATIO 28.4 (6.6-38.0); CALCIUM 8.7 MG/DL (8.5-10.1); CHLORIDE 106 MMOL/L (99-107); CREATININE 0.74 MG/DL (0.40-0.90); GLUCOSE 95 MG/DL (70-104); SODIUM 142 MMOL/L (135-145); TOTAL PROTEIN 6.2 G/DL (6.4-8.2); eGFR 77 ML/MIN
[2018-06-04] MEDS: K and/or MAG REPLACEMENT MC SCH (08:00)
[2018-06-04] MEDS: CefTRIAXone/D5W-Rocephin 1gm 50 ML IV SCH (08:00)
[2018-06-04] MEDS: lactobacillus rhamnosus 10,000 MMU CELLS/CAPSULE PO SCH (08:01)
[2018-06-04] MEDS: carVEDilol 12.5mg tablet PO SCH (08:01)
[2018-06-04] MEDS: aspirin 81mg tab.chew PO SCH (08:01)
[2018-06-04] MEDS: apixaban 5mg tablet PO SCH (08:02)
[2018-06-04] MEDS: lisinopril 5mg tablet PO SCH (08:02)
[2018-06-04] MEDS: atorvastatin 20mg tablet PO SCH (08:02)
[2018-06-04] MEDS: azithromycin/NS 500mg/250ml 250 ML IV SCH (09:46)
[2018-06-04 10:00] VITALS: BP 110/58
[2018-06-04 10:35] LABS: ACANTHOCYTES 1+; ANISOCYTOSIS 2+; MICROCYTOSIS 2+; PLATELET ESTIMATE NORMAL; POIKILOCYTOSIS FEW; POLYCHROMASIA FEW
[2018-06-04] MEDS ORDERED: LEVO500T2 PO (12:15)
== END 2018-06-04 14:00 | disposition home health service (06) | DRG 871 ==
LOC: ER 10:13 → ED HOLD 14:31 → EDBEDREQSVC 06-02 01:56 → ORTHO 4S 06-02 02:51
PROVIDERS: ADMIT Internal Medicine; ATTEND Family Medicine
PROC: B3201ZZ Computerized Tomography (CT Scan) of Thoracic Aorta using Low Osmolar Contrast (ICD-10-PCS; principal; 2018-06-01)
DX: A41.9 Sepsis, unspecified organism (principal); J18.1 Lobar pneumonia, unspecified organism; I21.A1 Myocardial infarction type 2; I50.22 Chronic systolic (congestive) heart failure; E78.00 Pure hypercholesterolemia, unspecified; I11.0 Hypertensive heart disease with heart failure; I25.10 Atherosclerotic heart disease of native coronary artery without angina pectoris; I27.20 Pulmonary hypertension, unspecified; I48.0 Paroxysmal atrial fibrillation; I25.2 Old myocardial infarction; Z95.0 Presence of cardiac pacemaker; Z98.51 Tubal ligation status; Z79.899 Other long term (current) drug therapy; Z79.82 Long term (current) use of aspirin; Z79.01 Long term (current) use of anticoagulants; Z86.73 Personal history of transient ischemic attack (TIA), and cerebral infarction without residual deficits; Z82.49 Family history of ischemic heart disease and other diseases of the circulatory system
CPT/HCPCS: 36415; 71045; 71275; 80053; 83605; 83735; 83880; 84484; 85025; 85610; 85730; 87040; 87070; 93005; 93306; 96365; 97161; 97530; 99285; G0378; J0456; J0696; J1956; Q9967

== ENCOUNTER 2018-06-14 16:44 | Emergency (ER) | payer MEDICARE, OTHER ==
[~2018-06-14] VITALS: Ht 167.6 cm; Wt 60.0 kg
[~2018-06-14 16:44] MED LIST changes: -COL100C PO; -COR3.125T PO; -DIGO-27 PO; -FURO-150 PO; +FURO20TA4 PO
[2018-06-14] MEDS ORDERED: normal saline 1000ML IV soln IVB ONE (17:25)
[2018-06-14 17:46] LABS: BASOPHILS % (AUTO) 0.6 % (0-1); EOSINOPHILS # (AUTO) 0.1 X10'3 (0-0.9); EOSINOPHILS % (AUTO) 1.3 % (0-6); HEMATOCRIT 31.6 % (35.0-45.0); HEMOGLOBIN 10.2 g/dl (12.0-16.0); LYMPHOCYTES # (AUTO) 1.5 X10'3 (1.1-4.8); LYMPHOCYTES % (AUTO) 19.6 % (21-51); MEAN CORPUSCULAR HEMOGLOBIN 22.1 PG (27.0-31.0); MEAN CORPUSCULAR HGB CONC 32.4 g/dL (33.0-36.5); MEAN CORPUSCULAR VOLUME 68.4 FL (78-98); MONOCYTES # (AUTO) 0.6 X10'3 (0-0.9); MONOCYTES % (AUTO) 7.5 % (2-12); NEUTROPHILS # (AUTO) 5.4 X10'3 (1.8-7.7); PLATELET COUNT 307 X10'3 (140-440); RED BLOOD COUNT 4.62 X10'6 (4.20-5.60); RED CELL DISTRIBUTION WIDTH 19.2 % (11.5-14.5); WHITE BLOOD COUNT 7.6 X10'3 (4.5-11.0)
[2018-06-14 17:59] LABS: ALANINE AMINOTRANSFERASE 51 U/L (12-78); ALBUMIN 2.5 G/DL (3.4-5.0); ALBUMIN/GLOBULIN RATIO 0.6 (1.1-1.5); ALKALINE PHOSPHATASE 87 IU/L (46-116); ANION GAP 6 (8-16); ASPARTATE AMINO TRANSFERASE 34 U/L (10-37); BILIRUBIN,TOTAL 0.6 MG/DL (0.1-1.0); BLOOD UREA NITROGEN 23 MG/DL (7-18); BUN/CREATININE RATIO 26.4 (6.6-38.0); CALCIUM 8.8 MG/DL (8.5-10.1); CHLORIDE 105 MMOL/L (99-107); CREATININE 0.87 MG/DL (0.40-0.90); GLUCOSE 109 MG/DL (70-104); POTASSIUM 3.8 MMOL/L (3.5-5.1); SODIUM 142 MMOL/L (135-145); TOTAL CARBON DIOXIDE 30.6 MMOL/L (24-32); TOTAL PROTEIN 6.4 G/DL (6.4-8.2); eGFR 64 ML/MIN
[2018-06-14 18:08] LABS: MAGNESIUM 1.8 MG/DL (1.5-2.4)
[2018-06-14 18:09] LABS: INR 1.2 INR; PROTHROMBIN TIME 12.3 SECONDS (9.0-12.0)
[2018-06-14] MEDS ORDERED: digoxin 250mcg/ml 2ml ampule IV ONE (18:20)
[2018-06-14] MEDS ORDERED: furosemide 10 MG/1 ML 10ml inj IV ONE (18:20)
[2018-06-14] MEDS ORDERED: diltiazem 5mg/ml 5ml inj. IV ONE (19:30)
--- NOTE | 2018-06-14 19:55 | NUR ---
PATIENT SITTING UP AT BEDSIDE, EATING A TURKEY SANDWHICH
[2018-06-14 20:10] LABS: ACANTHOCYTES 1+; ANISOCYTOSIS 2+; HYPOCHROMASIA 1+; MICROCYTOSIS 2+; PLATELET ESTIMATE NORMAL
[2018-06-14] MEDS ORDERED: DILT120C88 PO (21:23)
[2018-06-14] MEDS: diltiazem 30mg tablet PO ONE ×2 (22:00→22:02)
[2018-06-14 22:02] VITALS: BP 117/59
== END 2018-06-14 22:06 | disposition home or self-care (01) ==
LOC: ER 16:45
DX: I48.91 Unspecified atrial fibrillation (principal); I50.9 Heart failure, unspecified; R06.89 Other abnormalities of breathing; I25.10 Atherosclerotic heart disease of native coronary artery without angina pectoris; I11.0 Hypertensive heart disease with heart failure; I25.2 Old myocardial infarction; E78.00 Pure hypercholesterolemia, unspecified; Z79.82 Long term (current) use of aspirin; Z79.899 Other long term (current) drug therapy; Z86.73 Personal history of transient ischemic attack (TIA), and cerebral infarction without residual deficits; Z90.89 Acquired absence of other organs; Z98.51 Tubal ligation status; Z98.62 Peripheral vascular angioplasty status; Z96.89 Presence of other specified functional implants
CPT/HCPCS: 36415; 71045; 80053; 80162; 83735; 83880; 84484; 85025; 85610; 93005; 96374; 96375; 99284; J1160; J1940; J3490

== ENCOUNTER 2018-06-16 10:50 | Emergency (ER) | payer MEDICARE, OTHER ==
[~2018-06-16] VITALS: Ht 167.6 cm; Wt 59.1 kg
[~2018-06-16 10:50] MED LIST changes: +DILT120C88 PO
[2018-06-16 11:24] LABS: BASOPHILS # (AUTO) 0.1 X10'3 (0-0.2); BASOPHILS % (AUTO) 0.8 % (0-1); EOSINOPHILS # (AUTO) 0.1 X10'3 (0-0.9); EOSINOPHILS % (AUTO) 1.7 % (0-6); HEMATOCRIT 31.6 % (35.0-45.0); LYMPHOCYTES # (AUTO) 1.5 X10'3 (1.1-4.8); LYMPHOCYTES % (AUTO) 20.2 % (21-51); MEAN CORPUSCULAR HEMOGLOBIN 21.9 PG (27.0-31.0); MEAN CORPUSCULAR HGB CONC 31.7 g/dL (33.0-36.5); MEAN CORPUSCULAR VOLUME 68.9 FL (78-98); MEAN PLATELET VOLUME 7.9 FL (7.4-10.4); MONOCYTES # (AUTO) 0.6 X10'3 (0-0.9); MONOCYTES % (AUTO) 8.4 % (2-12); NEUTROPHILS # (AUTO) 5.1 X10'3 (1.8-7.7); NEUTROPHILS % (AUTO) 68.9 % (42-75); PLATELET COUNT 313 X10'3 (140-440); RED BLOOD COUNT 4.59 X10'6 (4.20-5.60); RED CELL DISTRIBUTION WIDTH 20.1 % (11.5-14.5); WHITE BLOOD COUNT 7.4 X10'3 (4.5-11.0)
[2018-06-16 11:36] LABS: D-DIMER 0.58 MG/L FEU (0-0.50); INR 1.2 INR; PROTHROMBIN TIME 12.2 SECONDS (9.0-12.0)
[2018-06-16 11:37] LABS: ALANINE AMINOTRANSFERASE 44 U/L (12-78); ALBUMIN 2.5 G/DL (3.4-5.0); ALBUMIN/GLOBULIN RATIO 0.7 (1.1-1.5); ALKALINE PHOSPHATASE 82 IU/L (46-116); ANION GAP 2 (8-16); ASPARTATE AMINO TRANSFERASE 27 U/L (10-37); BILIRUBIN,TOTAL 0.7 MG/DL (0.1-1.0); BLOOD UREA NITROGEN 19 MG/DL (7-18); BUN/CREATININE RATIO 22.9 (6.6-38.0); CALCIUM 8.7 MG/DL (8.5-10.1); CHLORIDE 106 MMOL/L (99-107); CREATININE 0.83 MG/DL (0.40-0.90); GLUCOSE 98 MG/DL (70-104); POTASSIUM 3.5 MMOL/L (3.5-5.1); SODIUM 142 MMOL/L (135-145); TOTAL CARBON DIOXIDE 33.9 MMOL/L (24-32); TOTAL PROTEIN 6.3 G/DL (6.4-8.2); eGFR 67 ML/MIN
[2018-06-16 11:43] LABS: MAGNESIUM 1.7 MG/DL (1.5-2.4)
[2018-06-16 12:03] LABS: ACANTHOCYTES 1+; ELLIPTOCYTES 1+; MICROCYTOSIS 2+; PLATELET ESTIMATE NORMAL; POLYCHROMASIA 1+; TARGET CELLS FEW
[2018-06-16 12:04] LABS: ANISOCYTOSIS 3+; POIKILOCYTOSIS 2+
[2018-06-16 12:08] LABS: HYPOCHROMASIA 1+
--- NOTE | 2018-06-16 13:05 | NUR ---
PT FAMILY UNHOOKED PT TO GO TO BATHROOM, PT INSTRUCTED NEXT TIME SHE NEEDS BATHROOM TO ASK NURSE TO UNHOOK HER AND TO OBTAIN URINE SAMPLE.
[2018-06-16] MEDS ORDERED: IPRA3AMP31 NEB (13:37)
[2018-06-16] MEDS ORDERED: DOCU-20 PO (13:37)
[2018-06-16] MEDS ORDERED: DILT120C51 PO (13:38)
[2018-06-16 14:18] LABS: CLARITY,URINE CLOUDY (Clear); COLOR,URINE YELLOW (Yellow); GLUCOSE, URINE NEGATIVE (Neg); KETONES,URINE NEGATIVE (Neg); LEUKOCYTE ESTERASE ,URINE TRACE (Neg); NITRITES, URINE NEGATIVE (Neg); OCCULT BLOOD,URINE SMALL (Neg); PH,URINE 6.5 (4.8-8.0); PROTEIN,URINE TRACE mg/dl (Neg)
[2018-06-16 14:19] LABS: UA COLLECTION TYPE VOIDED
[2018-06-16 14:24] LABS: MUCUS STRANDS FEW /LPF (Neg); SQUAMOUS EPITHELIAL CELL,UR MANY /LPF (FEW)
[2018-06-16 14:26] LABS: BACTERIA,URINE FEW /HPF (Neg)
[2018-06-16] MEDS ORDERED: CEPH500C5 PO ×2 (14:26→14:32)
[2018-06-16 14:27] LABS: RBC,URINE 0-2 /HPF (0-2); WBC,URINE 0-4 /HPF (0-4)
[2018-06-16 14:38] VITALS: BP 135/87
== END 2018-06-16 14:54 | disposition home or self-care (01) ==
LOC: ER 10:50
DX: N39.0 Urinary tract infection, site not specified (principal); R06.02 Shortness of breath; I25.10 Atherosclerotic heart disease of native coronary artery without angina pectoris; I11.0 Hypertensive heart disease with heart failure; I50.9 Heart failure, unspecified; E78.00 Pure hypercholesterolemia, unspecified; I10 Essential (primary) hypertension; I25.2 Old myocardial infarction; Z86.73 Personal history of transient ischemic attack (TIA), and cerebral infarction without residual deficits; Z98.61 Coronary angioplasty status; Z95.0 Presence of cardiac pacemaker; Z90.89 Acquired absence of other organs; Z98.51 Tubal ligation status; Z77.22 Contact with and (suspected) exposure to environmental tobacco smoke (acute) (chronic); Z79.899 Other long term (current) drug therapy
CPT/HCPCS: 36415; 71045; 80053; 81001; 83735; 83880; 84145; 84484; 85025; 85379; 85610; 87502; 87503; 93005; 99284

== ENCOUNTER 2018-06-26 13:34 | Emergency (ER) | payer MEDICARE, OTHER ==
[~2018-06-26] VITALS: Ht 167.6 cm; Wt 56.0 kg
[~2018-06-26 13:34] MED LIST changes: -ASPI-1265 PO; +CEPH500C5 PO; +DILT120C51 PO; -DILT120C88 PO; +DOCU-20 PO; +IPRA3AMP31 NEB
[2018-06-26] MEDS ORDERED: diltiazem 5mg/ml 5ml inj. IV ONE (13:55)
[2018-06-26] MEDS ORDERED: aspirin 81mg tab.chew PO ONE (13:55)
[2018-06-26 14:12] LABS: BASOPHILS % (AUTO) 0.7 % (0-1); EOSINOPHILS # (AUTO) 0.1 X10'3 (0-0.9); HEMATOCRIT 29.9 % (35.0-45.0); HEMOGLOBIN 9.6 g/dl (12.0-16.0); LYMPHOCYTES % (AUTO) 27.7 % (21-51); MEAN CORPUSCULAR HEMOGLOBIN 22.1 PG (27.0-31.0); MEAN CORPUSCULAR VOLUME 68.9 FL (78-98); MEAN PLATELET VOLUME 8.7 FL (7.4-10.4); MONOCYTES # (AUTO) 0.7 X10'3 (0-0.9); MONOCYTES % (AUTO) 10.1 % (2-12); NEUTROPHILS # (AUTO) 4.3 X10'3 (1.8-7.7); NEUTROPHILS % (AUTO) 60.5 % (42-75); PLATELET COUNT 238 X10'3 (140-440); RED BLOOD COUNT 4.35 X10'6 (4.20-5.60); RED CELL DISTRIBUTION WIDTH 18.8 % (11.5-14.5); WHITE BLOOD COUNT 7.1 X10'3 (4.5-11.0)
[2018-06-26 14:20] LABS: ALANINE AMINOTRANSFERASE 35 U/L (12-78); ALBUMIN 2.4 G/DL (3.4-5.0); ALBUMIN/GLOBULIN RATIO 0.7 (1.1-1.5); ALKALINE PHOSPHATASE 69 IU/L (46-116); ANION GAP 6 (8-16); ASPARTATE AMINO TRANSFERASE 26 U/L (10-37); BLOOD UREA NITROGEN 25 MG/DL (7-18); BUN/CREATININE RATIO 27.8 (6.6-38.0); CALCIUM 8.6 MG/DL (8.5-10.1); CHLORIDE 105 MMOL/L (99-107); GLUCOSE 96 MG/DL (70-104); SODIUM 139 MMOL/L (135-145); TOTAL CARBON DIOXIDE 28.3 MMOL/L (24-32); eGFR 61 ML/MIN
[2018-06-26 14:27] LABS: MAGNESIUM 1.8 MG/DL (1.5-2.4)
[2018-06-26] MEDS ORDERED: furosemide 10 MG/1 ML 10ml inj IV ONE (14:35)
[2018-06-26] MEDS ORDERED: ondansetron/PF 4mg/2ml inj IV ONE (15:10)
[2018-06-26] MEDS ORDERED: ONDA4TAB12 PO (15:22)
[2018-06-26 15:37] LABS: ANISOCYTOSIS 2+; LARGE PLATELETS FEW; MICROCYTOSIS 2+; PLATELET ESTIMATE NORMAL
[2018-06-26 15:38] LABS: ACANTHOCYTES 1+; POIKILOCYTOSIS FEW; POLYCHROMASIA 1+; SCHISTOCYTES FEW; TARGET CELLS FEW
[2018-06-26 16:06] VITALS: BP 133/77
== END 2018-06-26 16:08 | disposition home or self-care (01) ==
LOC: ER 13:34
DX: I48.91 Unspecified atrial fibrillation (principal); I11.0 Hypertensive heart disease with heart failure; I50.9 Heart failure, unspecified; E78.00 Pure hypercholesterolemia, unspecified; I25.2 Old myocardial infarction; Z86.73 Personal history of transient ischemic attack (TIA), and cerebral infarction without residual deficits; Z95.5 Presence of coronary angioplasty implant and graft; Z95.0 Presence of cardiac pacemaker; Z98.51 Tubal ligation status; Z90.89 Acquired absence of other organs; Z79.899 Other long term (current) drug therapy
CPT/HCPCS: 36415; 71045; 80053; 83735; 83880; 84484; 85025; 93005; 96374; 96375; 99284; J1940; J2405; J3490

== ENCOUNTER 2018-07-09 20:05 | Emergency (ER) | payer MEDICARE, OTHER ==
[~2018-07-09] VITALS: Ht 167.6 cm; Wt 57.0 kg
[~2018-07-09 20:05] MED LIST changes: +ONDA4TAB12 PO
[2018-07-09 20:32] LABS: BASOPHILS % (AUTO) 0.7 % (0-1); EOSINOPHILS % (AUTO) 0.8 % (0-6); HEMATOCRIT 29.2 % (35.0-45.0); HEMOGLOBIN 9.1 g/dl (12.0-16.0); LYMPHOCYTES # (AUTO) 1.7 X10'3 (1.1-4.8); LYMPHOCYTES % (AUTO) 29.4 % (21-51); MEAN CORPUSCULAR HEMOGLOBIN 21.5 PG (27.0-31.0); MEAN CORPUSCULAR HGB CONC 31.3 g/dL (33.0-36.5); MEAN CORPUSCULAR VOLUME 68.8 FL (78-98); MONOCYTES # (AUTO) 0.5 X10'3 (0-0.9); MONOCYTES % (AUTO) 9.4 % (2-12); NEUTROPHILS # (AUTO) 3.5 X10'3 (1.8-7.7); NEUTROPHILS % (AUTO) 59.7 % (42-75); PLATELET COUNT 326 X10'3 (140-440); RED BLOOD COUNT 4.25 X10'6 (4.20-5.60); RED CELL DISTRIBUTION WIDTH 18.9 % (11.5-14.5); WHITE BLOOD COUNT 5.8 X10'3 (4.5-11.0)
--- NOTE | 2018-07-09 20:36 | NUR ---
INFORMED DR MACKEY OF METOPROLOL CONTRAINDACTIONS WITH HEART FAILURE, HE STATES TO CONTINUE TO ADMINSTER
[2018-07-09] MEDS: metoprolol tartrate 1mg/ml inj IV ONE ×2 (20:38→20:46)
[2018-07-09 20:44] LABS: ALANINE AMINOTRANSFERASE 32 U/L (12-78); ALBUMIN 2.4 G/DL (3.4-5.0); ALBUMIN/GLOBULIN RATIO 0.6 (1.1-1.5); ALKALINE PHOSPHATASE 66 IU/L (46-116); ANION GAP 6 (8-16); ASPARTATE AMINO TRANSFERASE 22 U/L (10-37); BILIRUBIN,TOTAL 0.8 MG/DL (0.1-1.0); BLOOD UREA NITROGEN 30 MG/DL (7-18); BUN/CREATININE RATIO 29.1 (6.6-38.0); CALCIUM 8.6 MG/DL (8.5-10.1); CHLORIDE 108 MMOL/L (99-107); CREATININE 1.03 MG/DL (0.40-0.90); GLUCOSE 111 MG/DL (70-104); POTASSIUM 3.5 MMOL/L (3.5-5.1); SODIUM 143 MMOL/L (135-145); TOTAL CARBON DIOXIDE 29.5 MMOL/L (24-32); TOTAL PROTEIN 6.1 G/DL (6.4-8.2); eGFR 53 ML/MIN
[2018-07-09 20:54] LABS: INR 1.4 INR; PARTIAL THROMBOPLASTIN TIME 29 SECONDS (22-32)
[2018-07-09] MEDS ORDERED: diltiazem 5mg/ml 5ml inj. IV ONE ×2 (20:55→22:05)
[2018-07-09 21:26] LABS: ANISOCYTOSIS 2+; MICROCYTOSIS 2+; PLATELET ESTIMATE NORMAL
[2018-07-09 21:27] LABS: ACANTHOCYTES 1+; ELLIPTOCYTES FEW; HYPOCHROMASIA 1+; POLYCHROMASIA FEW; SCHISTOCYTES FEW
[2018-07-09 22:30] VITALS: BP 117/65
== END 2018-07-09 23:48 | disposition home or self-care (01) ==
LOC: ER 20:06
DX: I48.91 Unspecified atrial fibrillation (principal); R11.2 Nausea with vomiting, unspecified; R06.02 Shortness of breath; I11.0 Hypertensive heart disease with heart failure; I50.9 Heart failure, unspecified; I25.10 Atherosclerotic heart disease of native coronary artery without angina pectoris; E78.00 Pure hypercholesterolemia, unspecified; I25.2 Old myocardial infarction; F17.200 Nicotine dependence, unspecified, uncomplicated; Z95.5 Presence of coronary angioplasty implant and graft; Z95.0 Presence of cardiac pacemaker; Z98.51 Tubal ligation status; Z86.73 Personal history of transient ischemic attack (TIA), and cerebral infarction without residual deficits; Z79.899 Other long term (current) drug therapy
CPT/HCPCS: 36415; 71045; 80053; 83880; 84484; 85025; 85610; 85730; 93005; 96374; 96376; 99284; J3490

== ENCOUNTER 2018-07-29 08:23 | Emergency (ER) | payer MEDICARE, OTHER ==
[~2018-07-29] VITALS: Ht 167.6 cm; Wt 57.7 kg
[2018-07-29] MEDS ORDERED: diltiazem 5mg/ml 5ml inj. IV ONE ×2 (08:40→10:25)
[2018-07-29] MEDS ORDERED: furosemide 10 MG/1 ML 10ml inj IV ONE (08:40)
[2018-07-29] MEDS ORDERED: FURO-149 PO (08:54)
[2018-07-29] MEDS ORDERED: FURO-150 PO (08:55)
[2018-07-29 09:06] LABS: BASOPHILS % (AUTO) 0.4 % (0-1); EOSINOPHILS % (AUTO) 0.3 % (0-6); HEMATOCRIT 31.4 % (35.0-45.0); HEMOGLOBIN 9.7 g/dl (12.0-16.0); LYMPHOCYTES # (AUTO) 1.1 X10'3 (1.1-4.8); LYMPHOCYTES % (AUTO) 11.5 % (21-51); MEAN CORPUSCULAR HEMOGLOBIN 20.7 PG (27.0-31.0); MEAN CORPUSCULAR HGB CONC 30.8 g/dL (33.0-36.5); MEAN CORPUSCULAR VOLUME 67.1 FL (78-98); MEAN PLATELET VOLUME 8.6 FL (7.4-10.4); MONOCYTES # (AUTO) 1.1 X10'3 (0-0.9); MONOCYTES % (AUTO) 11.7 % (2-12); NEUTROPHILS # (AUTO) 7.3 X10'3 (1.8-7.7); NEUTROPHILS % (AUTO) 76.1 % (42-75); PLATELET COUNT 212 X10'3 (140-440); RED BLOOD COUNT 4.68 X10'6 (4.20-5.60); RED CELL DISTRIBUTION WIDTH 18.7 % (11.5-14.5); WHITE BLOOD COUNT 9.6 X10'3 (4.5-11.0)
[2018-07-29 09:27] LABS: ALANINE AMINOTRANSFERASE 31 U/L (12-78); ALBUMIN 2.7 G/DL (3.4-5.0); ALBUMIN/GLOBULIN RATIO 0.7 (1.1-1.5); ALKALINE PHOSPHATASE 72 IU/L (46-116); ANION GAP 6 (8-16); ASPARTATE AMINO TRANSFERASE 21 U/L (10-37); BLOOD UREA NITROGEN 24 MG/DL (7-18); BUN/CREATININE RATIO 24.7 (6.6-38.0); CALCIUM 8.6 MG/DL (8.5-10.1); CHLORIDE 105 MMOL/L (99-107); CREATININE 0.97 MG/DL (0.40-0.90); GLUCOSE 108 MG/DL (70-104); POTASSIUM 3.4 MMOL/L (3.5-5.1); SODIUM 143 MMOL/L (135-145); TOTAL CARBON DIOXIDE 32.4 MMOL/L (24-32); TOTAL PROTEIN 6.4 G/DL (6.4-8.2); eGFR 56 ML/MIN
[2018-07-29 09:29] LABS: ANISOCYTOSIS 2+; ELLIPTOCYTES 1+; HYPOCHROMASIA 1+; MICROCYTOSIS 2+; PLATELET ESTIMATE NORMAL; POLYCHROMASIA 1+; SCHISTOCYTES FEW
[2018-07-29 09:30] LABS: ACANTHOCYTES 1+
[2018-07-29 09:33] LABS: INR 1.3 INR; PARTIAL THROMBOPLASTIN TIME 27 SECONDS (22-32)
--- NOTE | 2018-07-29 10:23 | NUR ---
pt up to bsc with assit. 400ml void.
[2018-07-29 11:22] VITALS: BP 126/75
== END 2018-07-29 11:23 | disposition home or self-care (01) ==
LOC: ER 08:24
DX: I48.91 Unspecified atrial fibrillation (principal); I11.0 Hypertensive heart disease with heart failure; I50.9 Heart failure, unspecified; I25.10 Atherosclerotic heart disease of native coronary artery without angina pectoris; E78.00 Pure hypercholesterolemia, unspecified; I25.2 Old myocardial infarction; Z98.51 Tubal ligation status; Z98.890 Other specified postprocedural states; Z88.8 Allergy status to other drugs, medicaments and biological substances; Z79.2 Long term (current) use of antibiotics; Z86.73 Personal history of transient ischemic attack (TIA), and cerebral infarction without residual deficits; Z79.899 Other long term (current) drug therapy
CPT/HCPCS: 36415; 71045; 80053; 83880; 84484; 85025; 85610; 85730; 93005; 96374; 96375; 96376; 99284; J1940; J3490

== ENCOUNTER 2018-08-15 14:58 | Emergency (ER) | payer MEDICARE, OTHER ==
[~2018-08-15] VITALS: Ht 167.6 cm; Wt 57.7 kg
[~2018-08-15 14:58] MED LIST changes: -CEPH500C5 PO; +FURO-149 PO; +FURO-150 PO; -FURO20TA4 PO; -ONDA4TAB12 PO
[2018-08-15 15:37] LABS: BASOPHILS % (AUTO) 0.6 % (0-1); EOSINOPHILS # (AUTO) 0.1 X10'3 (0-0.9); HEMATOCRIT 29.8 % (35.0-45.0); HEMOGLOBIN 9.3 g/dl (12.0-16.0); LYMPHOCYTES # (AUTO) 1.3 X10'3 (1.1-4.8); LYMPHOCYTES % (AUTO) 25.5 % (21-51); MEAN CORPUSCULAR HEMOGLOBIN 20.5 PG (27.0-31.0); MEAN CORPUSCULAR HGB CONC 31.4 g/dL (33.0-36.5); MEAN CORPUSCULAR VOLUME 65.2 FL (78-98); MEAN PLATELET VOLUME 8.5 FL (7.4-10.4); MONOCYTES # (AUTO) 0.5 X10'3 (0-0.9); NEUTROPHILS # (AUTO) 3.4 X10'3 (1.8-7.7); NEUTROPHILS % (AUTO) 63.9 % (42-75); PLATELET COUNT 249 X10'3 (140-440); RED BLOOD COUNT 4.57 X10'6 (4.20-5.60); RED CELL DISTRIBUTION WIDTH 18.4 % (11.5-14.5); WHITE BLOOD COUNT 5.3 X10'3 (4.5-11.0)
[2018-08-15] MEDS ORDERED: propofol 1000mg/100ml bottle 100 ML IV PRN (15:41)
[2018-08-15 15:45] LABS: ALANINE AMINOTRANSFERASE 33 U/L (12-78); ALBUMIN 2.5 G/DL (3.4-5.0); ALBUMIN/GLOBULIN RATIO 0.7 (1.1-1.5); ALKALINE PHOSPHATASE 70 IU/L (46-116); ANION GAP 4 (8-16); ASPARTATE AMINO TRANSFERASE 23 U/L (10-37); BILIRUBIN,TOTAL 0.7 MG/DL (0.1-1.0); BLOOD UREA NITROGEN 25 MG/DL (7-18); BUN/CREATININE RATIO 24.3 (6.6-38.0); CALCIUM 8.6 MG/DL (8.5-10.1); CHLORIDE 104 MMOL/L (99-107); CREATININE 1.03 MG/DL (0.40-0.90); GLUCOSE 106 MG/DL (70-104); POTASSIUM 4.2 MMOL/L (3.5-5.1); SODIUM 141 MMOL/L (135-145); TOTAL CARBON DIOXIDE 32.9 MMOL/L (24-32); TOTAL PROTEIN 6.3 G/DL (6.4-8.2); eGFR 53 ML/MIN
[2018-08-15 15:48] LABS: PARTIAL THROMBOPLASTIN TIME 29 SECONDS (22-32)
[2018-08-15] MEDS ORDERED: furosemide 10 MG/1 ML 10ml inj IV ONE (16:00)
[2018-08-15] MEDS ORDERED: diltiazem 5mg/ml 5ml inj. IV ONE (16:05)
[2018-08-15 16:27] LABS: ACANTHOCYTES 1+; ANISOCYTOSIS 2+; BURR CELLS 1+; HYPOCHROMASIA 1+; MICROCYTOSIS 2+; PLATELET ESTIMATE NORMAL; POLYCHROMASIA 1+
[2018-08-15 16:28] LABS: SCHISTOCYTES 1+
[2018-08-15 16:57] VITALS: BP 117/75
== END 2018-08-15 16:41 | disposition home or self-care (01) ==
LOC: ER 14:58
DX: I11.0 Hypertensive heart disease with heart failure (principal); I50.9 Heart failure, unspecified; I48.91 Unspecified atrial fibrillation; I25.10 Atherosclerotic heart disease of native coronary artery without angina pectoris; E78.00 Pure hypercholesterolemia, unspecified; I25.2 Old myocardial infarction; Z86.73 Personal history of transient ischemic attack (TIA), and cerebral infarction without residual deficits; Z95.0 Presence of cardiac pacemaker; Z98.51 Tubal ligation status
CPT/HCPCS: 36415; 71045; 80053; 83880; 84484; 85025; 85610; 85730; 93005; 96374; 96375; 99284; J1940; 99283; J3490

== ENCOUNTER 2018-11-13 15:59 | Emergency (ER) | payer MEDICARE, OTHER ==
[~2018-11-13] VITALS: Ht 167.6 cm; Wt 61.4 kg
[~2018-11-13 15:59] MED LIST changes: +FERR325T32 PO; -FURO-150 PO; -LISI-222 PO; +SACU1TAB PO
[2018-11-13] MEDS ORDERED: tranexamic acid 100mg/ml inj. TP ONE (16:10)
[2018-11-13] MEDS ORDERED: LIDOcaine 4% (40 mg/ml) topical solution 50ml TP ONE (16:10)
[2018-11-13 17:30] VITALS: BP 156/96
== END 2018-11-13 17:32 | disposition home or self-care (01) ==
LOC: ER 15:59
DX: R04.0 Epistaxis (principal); I48.91 Unspecified atrial fibrillation; I25.10 Atherosclerotic heart disease of native coronary artery without angina pectoris; I11.0 Hypertensive heart disease with heart failure; I50.9 Heart failure, unspecified; E78.00 Pure hypercholesterolemia, unspecified; I25.2 Old myocardial infarction; Z86.73 Personal history of transient ischemic attack (TIA), and cerebral infarction without residual deficits; Z98.61 Coronary angioplasty status; Z95.0 Presence of cardiac pacemaker; Z98.51 Tubal ligation status; Z98.890 Other specified postprocedural states; Z79.899 Other long term (current) drug therapy
CPT/HCPCS: 99284